=== PATIENT | female | born 1935 | race African-American/Black ===

== ENCOUNTER 2017-03-07 21:17 | Emergency (ER) | payer MEDICARE, BC ==
[~2017-03-07] VITALS: Ht 160 cm; Wt 69.0 kg
[2017-03-07 23:49] LABS: CLARITY URINE CLOUDY (CLEAR); COLOR URINE YELLOW (YELLOW); KETONES URINE NEGATIVE (NEGATIVE); LEUKOCYTE ESTERASE URINE 2+ (NEGATIVE); NITRITE URINE POSITIVE (NEGATIVE); OCCULT BLOOD URINE 1+ (NEGATIVE); PH URINE 7.5 (4.5-8.0); PROTEIN URINE 1+ (NEGATIVE); SPECIFIC GRAVITY URINE 1.016 (1.005-1.030); UROBILINOGEN URINE 0.2 E.U./dL (0.2-1.0)
[2017-03-07 23:49] LABS: HEMOGLOBIN. 12.8 g/dL (12.0-16.0); MEAN CORPUSCULAR HEMOGLOBIN 29.6 pg (28.0-32.0); MEAN CORPUSCULAR VOLUME 85.5 fL (81.0-99.0); MEAN PLATELET VOLUME 7.6 fl (7.4-10.4); PLATELET 249 x1000/uL (130-400); RED BLOOD CELL COUNT 4.32 mill/uL (4.2-5.4); RED CELL DISTRIBUTION WIDTH 13.4 % (11.6-14.6)
[2017-03-07 23:52] LABS: CHLORIDE 105 mEq/L (98-107)
[2017-03-08] LABS: CARBON DIOXIDE 27 mEq/L (21-32)
[2017-03-08] MEDS ORDERED: LEVOFLOXACIN 500MG TABLET PO ONE
[2017-03-08 01:23] VITALS: BP 129/65
[2017-03-08 03:02] LABS: ATYPICAL LYMPHOCYTES 1
[2017-03-08 03:03] LABS: PLATELET ESTIMATE NORMAL
== END 2017-03-08 01:35 | disposition home or self-care (01) ==
LOC: ER 22:45
DX: N39.0 Urinary tract infection, site not specified (principal); E11.9 Type 2 diabetes mellitus without complications; F17.200 Nicotine dependence, unspecified, uncomplicated
CPT/HCPCS: 36415; 80048; 81001; 83605; 85025; 87040; 87077; 87086; 87186; 99284

== ENCOUNTER → 2017-12-17 | Outpatient (CLI) | payer MEDICARE, BC | END | disposition home or self-care (01) | LOC: US 10:36 | PROVIDERS: ATTEND Internal Medicine Gastroenterology | DX: E04.1 Nontoxic single thyroid nodule (principal); R10.9 Unspecified abdominal pain | CPT/HCPCS: 76536 ==

== ENCOUNTER → 2018-07-02 | Outpatient (CLI) | payer MEDICARE, BC | END | disposition home or self-care (01) | LOC: US 10:24 | PROVIDERS: ATTEND Internal Medicine Gastroenterology | DX: E04.1 Nontoxic single thyroid nodule (principal) | CPT/HCPCS: 76536 ==

== ENCOUNTER → 2019-03-25 | Outpatient (CLI) | payer BC | END | disposition home or self-care (01) | LOC: US 10:46 | PROVIDERS: ATTEND Internal Medicine Gastroenterology | DX: E04.1 Nontoxic single thyroid nodule (principal) | CPT/HCPCS: 76536 ==